=== PATIENT | female | born 1945 | race Caucasian/White ===

== ENCOUNTER 2020-09-05 14:35 | Outpatient (CLI) | payer MEDICARE, OTHER, SELFPAY ==
--- NOTE | ~2020-09-05 | XR_ITS ---
EXAMINATION: XR chest 2V 09/05/2020 15:01 INDICATION: Cough and lateral chest pain PROCEDURE: 2 view chest COMPARISON: 05/18/2019 FINDINGS: The lungs are clear. The cardiomediastinal silhouette is within normal limits. There are no pleural effusions. There is no pneumothorax suspected. There is scoliosis. IMPRESSION: 1: NO ACUTE CARDIOPULMONARY DISEASE. Reviewed, dictated and finalized at location B.
== END 2020-09-05 14:36 | disposition home or self-care (01) ==
PROVIDERS: PCP Internal Medicine; Visit Provider Internal Medicine
DX: R05 Cough (principal)
CPT/HCPCS: 71046

== ENCOUNTER 2020-12-18 11:20 | Outpatient (CLI) | payer MEDICARE, SELFPAY ==
--- NOTE | ~2020-12-18 | XR_ITS ---
XR chest 2V DATE: 12/18/2020 11:37 INDICATION: Cough TECHNIQUE: PA and lateral views COMPARISON: 09/05/2022 view chest FINDINGS: Normal heart size. No hilar or mediastinal enlargement. No pulmonary infiltrate or consolidation, pleural effusion or pulmonary vascular congestion or pneumo thorax. There is S-shaped scoliosis of the thoracolumbar spine. Diffuse osteopenia. Prominent amount of fecal material in the colon. IMPRESSION: No active cardiopulmonary disease Reviewed, dictated and finalized at location A. TAL MOUNTER
== END 2020-12-18 11:21 | disposition home or self-care (01) ==
PROVIDERS: PCP Internal Medicine; Visit Provider Internal Medicine
DX: R05 Cough (principal); M85.89 Other specified disorders of bone density and structure, multiple sites; M41.9 Scoliosis, unspecified
CPT/HCPCS: 71046

== ENCOUNTER 2022-09-13 13:50 | Outpatient (CLI) | payer MEDICARE, SELFPAY ==
--- NOTE | ~2022-09-13 | DEXA_ITS ---
Bone Density Report Name: SHEILA AVALOS Age: 77 Sex: Female Ethnicity: White Date of : 1945 Indication: osteopenia; parental hip fracture; height loss; prior fracture; postmenopausal Referring Provider: LEYLA ALFARO Study: Bone densitometry was performed. Exam Date: September 13, 2022 Accession number: [id number] Bone Density: Region BMD T-score Z-score Classification AP Spine(L1-L4) 0.926 -1.1 1.4 Osteopenia Femoral Neck (Left) 0.693 -1.4 0.8 Osteopenia Total Hip (Left) 0.815 -1.0 0.9 Normal Femoral Neck (Right) 0.622 -2.0 0.1 Osteopenia Total Hip (Right) 0.777 -1.4 0.5 Osteopenia Total Hip Mean 0.796 -1.2 0.7 Osteopenia World Health Organization criteria for BMD impression classify patients as: Normal (T-score at or above -1.0), Osteopenia (T-score between -1.0 and -2.5), or Osteoporosis (T-score at or below -2.5). 10-year Fracture Risk(1): Major Osteoporotic Fracture 36% Hip Fracture 22% Reported Risk Factors: [place] (), Neck BMD=0.622, BMI=24.2, previous fracture, parental fracture (1) FRAX(R) Version 3.08. Fracture probability calculated for an untreated patient. Fracture probability may be lower if the patient has received treatment. Previous Exams: Region Exam Age BMD T-score BMD Change BMD Change Date g/cm2 vs Baseline vs Previous AP Spine (L1-L4) 09/13/2022 77 0.926 -1.1 0.021 (2.3%) 0.027 (3.0%)* 01/21/2017 71 0.899 -1.3 -0.006 (-0.7%) -0.006 (-0.7%) 08/15/2014 69 0.905 -1.3 Total Hip(Left) 09/13/2022 77 0.815 -1.0 -0.065 (-7.4%) -0.060 (-6.8%) 01/21/2017 71 0.875 -0.6 -0.005 (-0.6%) -0.005 (-0.6%) 08/15/2014 69 0.880 -0.5 Total Hip(Right) 09/13/2022 77 0.777 -1.4 -0.031 (-3.8%) -0.031 (-3.8%) 01/21/2017 71 0.808 -1.1 0.000 (0.0%) 0.000 (0.0%) 08/15/2014 69 0.808 -1.1 *Denotes significance at 95% confidence level, LSC for AP Spine = 0.022 g/cm2, LSC for Total Hip = 0.027 g/cm2 Clinical Information Provided by Patient: Has had a low trauma fracture Parent has had a hip fracture Has used the following medications: Vitamin D Patient maximum height was 64 Menopause Age: 58 Onset of menses at age 14 Number of children 3 Impression: The patient has low bone mass, based on the Right Femoral Neck T-score. The patient has an estimated ten-year risk of hip fracture of 22% and an estimated ten-year risk of major fracture of 36%, base
== END 2022-09-13 13:51 | disposition home or self-care (01) ==
PROVIDERS: PCP Internal Medicine; Visit Provider Internal Medicine
DX: N95.9 Unspecified menopausal and perimenopausal disorder (principal); Z78.0 Asymptomatic menopausal state; M85.88 Other specified disorders of bone density and structure, other site; M85.852 Other specified disorders of bone density and structure, left thigh; M85.851 Other specified disorders of bone density and structure, right thigh
CPT/HCPCS: 77080

== ENCOUNTER 2022-12-09 14:45 | Outpatient (CLI) | payer MEDICARE, SELFPAY ==
--- NOTE | ~2022-12-09 | XR_ITS ---
EXAM: XR cervical spine min 6V DATE: 12/09/2022 15:11 HISTORY: M54.2 - Cervicalgia, LT SIDED PAIN INTO LT ARM, NUMBNESS . COMPARISON: None available. FINDINGS: Osteopenia Craniocervical association and atlantoaxial joint are aligned, and display mild degenerative change. No prevertebral soft tissue swelling. 2 mm retrolisthesis at C2-3 that reduces in flexion. 2 mm retrolisthesis at C5-6 that reduces in flexion. 2 mm anterolisthesis at C4-5 which e merges in flexion. Vertebral body heights are maintained. Mild disc space narrowing at C5-6. Multilev el mild facet hypertrophy. 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 Mild degenerative disc disease at C5-6 . Multilevel mild facet arthropathy. Reviewed, dictated and finalized at location K. 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 Mild degenerativ e disc disease at C5-6. Multilevel mild facet arthropathy.
== END 2022-12-09 14:46 | disposition home or self-care (01) ==
PROVIDERS: PCP Internal Medicine; Visit Provider Internal Medicine
DX: M50.322 Other cervical disc degeneration at C5-C6 level (principal)
CPT/HCPCS: 72052

== ENCOUNTER 2023-06-23 10:34 | Outpatient (CLI) | payer MEDICARE, SELFPAY ==
--- NOTE | ~2023-06-23 | MR_ITS ---
EXAMINATION: MR cervical spine wo con DATE: 06/23/2023 11:25 INDICATION: Other chronic pain. Left-sided neck pain radiating to the shoulder. TECHNIQUE: Magnetic resonance imaging (MRI) of the cervical spine was performed without intravenous c ontrast. Sequences included sagittal T2-weighted FSE, sagittal T2-weighted FS FSE, sagittal T1-weight ed FSE, axial MERGE, and axial T2-weighted FSE. COMPARISON: Cervical spine radiographs 12/09/2022 FINDINGS: There is 2 mm retrolisthesis of C5 on C6. There is mild chronic anterior wedging of C4 and C5 vertebral bodies. There is mildly decreased disc height at C4-C5, moderately decreased disc height at C5-C6, and mildly decreased disc height at C6-C7. The spinal cord signal intensity is normal. The following disc levels are specifically discussed: C2-C3: There is a central protrusion. There is no uncovertebral joint osteoarthritis. There is mild r ight and severe left facet joint osteoarthritis. There is mild left neural foraminal stenosis. There is no central canal stenosis. C3-C4: There is a central extrusion. There is no uncovertebral joint osteoarthritis. There is severe left facet joint osteoarthritis. There is mild left neural foraminal stenosis. There is no central ca nal stenosis. C4-C5: The disc is bulging. There is mild bilateral uncovertebral joint osteoarthritis. There is mild bilateral facet joint osteoarthritis. There is no neural foraminal stenosis. There is no central can al stenosis. C5-C6: The disc is bulging. There is severe bilateral uncovertebral joint osteoarthritis. There is mi ld bilateral facet joint osteoarthritis. There is mild bilateral neural foraminal stenosis. There is mild central canal stenosis with ventral indentation of the spinal cord. C6-C7: The disc is bulging. There is mild bilateral uncovertebral joint osteoarthritis. There is mild right and moderate left facet joint osteoarthritis. There is mild bilateral neural foraminal stenosi s. There is mild central canal stenosis. C7-T1: The disc does not extend beyond the endplate margin. There is no uncovertebral joint osteoarth ritis. There is mild left facet joint osteoarthritis. There is no neural foraminal stenosis. There is no central canal stenosis. IMPRESSION: 1. Moderate cervical spondylosis. Reviewed, dictated and finalized at location A.
== END 2023-06-23 10:35 | disposition home or self-care (01) ==
PROVIDERS: PCP Internal Medicine; Visit Provider Internal Medicine
DX: M47.892 Other spondylosis, cervical region (principal)
CPT/HCPCS: 72141

== ENCOUNTER 2025-07-07 14:28 | Outpatient (CLI) | payer MEDICARE, SELFPAY ==
--- NOTE | ~2025-07-07 | DEXA_ITS ---
Bone Density Report Name: SHEILA AVALOS Age: 79 Sex: Female Ethnicity: White Date of : 1945 Indication: osteopenia; parental hip fracture; height loss; Referring Provider: LEYLA ALFARO Study: Bone densitometry was performed. Exam Date: July 07, 2025 Accession number: [id number] Bone Density: Region BMD T-score Z-score Classification AP Spine(L1-L4) 0.946 -0.9 1.8 Normal Femoral Neck (Left) 0.707 -1.3 1.0 Osteopenia Total Hip (Left) 0.749 -1.6 0.5 Osteopenia Femoral Neck (Right) 0.612 -2.1 0.2 Osteopenia Total Hip (Right) 0.738 -1.7 0.4 Osteopenia Total Hip Mean 0.744 -1.7 0.5 Osteopenia World Health Organization criteria for BMD impression classify patients as: Normal (T-score at or above -1.0), Osteopenia (T-score between -1.0 and -2.5), or Osteoporosis (T-score at or below -2.5). 10-year Fracture Risk(1): Major Osteoporotic Fracture 29% Hip Fracture 19% Reported Risk Factors: [place] (), Neck BMD=0.612, BMI=24.0, parental fracture (1) FRAX(R) Version 3.08. Fracture probability calculated for an untreated patient. Fracture probability may be lower if the patient has received treatment. Previous Exams: -- Region Exam Age BMD T-score BMD Change BMD Change Date g/cm2 vs Baseline vs Previous -- AP Spine (L1-L4) 07/07/2025 79 0.946 -0.9 2.1% 2.1% 09/13/2022 77 0.926 -1.1 Total Hip(Left) 07/07/2025 79 0.749 -1.6 -8.1%* -8.1%* 09/13/2022 77 0.815 -1.0 Total Hip(Right) 07/07/2025 79 0.738 -1.7 -5.0%* -5.0%* 09/13/2022 77 0.777 -1.4 -- *Denotes significance at 95% confidence level, LSC for AP Spine = 0.022 g/cm2, LSC for Total Hip = 0.027 g/cm2 Clinical Information Provided by Patient: Parent has had a hip fracture Has used the following medications: Actonel (i.e. risedronate), Fosamax (i.e. alendronate), HRT (i.e. estrogen/hormone therapy), Vitamin D, Calcium Patient maximum height was 64 Menopause Age: 58 Does not regularly consume dairy products Drinks caffeinated beverages Onset of menses at age 14 Number of children 3 Impression: The patient has low bone mass, based on the Right Femoral Neck T-score. The patient has an estimated ten-year risk of hip fracture of 19% and an estimated ten-year risk of major fracture of 29%, based on the WHO FRAX algorithm. The patient has risk factors, including: parental hip fracture. The BMD for the Total Hip(Left) decreased, changing by -8.1% since the last DXA exam. The BMD for the Total Hip(Right) decreased, changing by -5.0% since the last DXA exam. Discussion: BONE DENSITY IS LOW AT ONE OR MORE SKELETAL SITES. THE PATIENT'S BMD AND CLINICAL RISK FACTORS CONTRIBUTE TO THIS PATIENT'S HIGH RISK OF FRACTURE. This patient's lowest T-score is low at one or more skeletal sites. It meets the World Health Organization's (WHO) criteria for ?low bone mass? (T-score between -1.0 and -2.5). The patient's 10-year risk of hip fracture and 10 year risk of a major osteoporotic fracture as calculated by FRAX exceeds the threshold where pharmacological therapy is recommended by the National Osteoporosis Foundation (NOF). However, all treatment decisions require clinical judgment and consideration of individual patient factors, including patient preferences, comorbidities, previous drug use, risk factors not captured in the FRAX model (e.g., frailty, falls, vitamin D deficiency, increased bone turnover, interval significant decline in bone density) and possible under or overestimation of fracture risk by FRAX. The patient should follow a healthful lifestyle (good nutrition with adequate calcium and vitamin D, and appropriate weight-bearing exercise). Follow-Up: Consider a repeat BMD and Vertebral Fracture Assessment (VFA) exam in 2 years or sooner if medically necessary, to reassess this patient's status. Reported by: DEBORA on 07/07/2025 2:54:00 PM. Reviewed, dictated and finalized at location A.
== END 2025-07-07 14:29 | disposition home or self-care (01) ==
LOC: MICIMG 14:30
PROVIDERS: PCP Internal Medicine; Visit Provider Internal Medicine
DX: Z78.0 Asymptomatic menopausal state (principal); M85.852 Other specified disorders of bone density and structure, left thigh; M85.851 Other specified disorders of bone density and structure, right thigh
CPT/HCPCS: 77080